=== PATIENT | female | born 1960 | race Asian ===

== ENCOUNTER 2024-06-05 07:26 | Outpatient (CLI) | payer OTHER, MEDICARE | END 2024-06-05 07:27 | disposition critical access hospital (66) | LOC: EMS 07:26 | DX: S00.83XA Contusion of other part of head, initial encounter (principal); M25.512 Pain in left shoulder; V89.2XXA Person injured in unspecified motor-vehicle accident, traffic, initial encounter; Y93.89 Activity, other specified; Y92.415 Exit ramp or entrance ramp of street or highway as the place of occurrence of the external cause | CPT/HCPCS: A0425; A0429 ==

== ENCOUNTER 2024-06-05 07:48 | Emergency (ER) | payer OTHER, MEDICARE ==
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
[2024-06-05 10:06] VITALS: BP 142/95; O2SAT 99
== END 2024-06-05 09:55 | disposition home or self-care (01) ==
LOC: EDUNIT# → ED 07:48
DX: S00.12XA Contusion of left eyelid and periocular area, initial encounter (principal); M79.602 Pain in left arm; V43.52XA Car driver injured in collision with other type car in traffic accident, initial encounter; Y93.89 Activity, other specified
CPT/HCPCS: 99284